=== PATIENT | female | born 1975 | race Caucasian/White ===

== ENCOUNTER 2024-02-26 08:10 | Outpatient (OUT) | payer BC, SELFPAY ==
--- NOTE | 2024-02-26 | MM_ITS ---
Patient Name: VIRGILIO VALLES MR#: [id number] : 1975 Exam Date: 02/26/2024 Ordering Doctor: DR Shmuel Berkowitz . RADIOLOGY REPORT PROCEDURE: MM TOMOSYNTHESIS SCREENING BI COMPARISON: MG MAMM SCREEN 3D NATASHA CAD, 09/05/2020. MG MAMM SCREEN 3D NATASHA CAD, 06/09/2022. INDICATIONS: SCREENING FOR MALIGNANT NEOPLASM OF BREASTS Calculator Name NCI Breast Cancer Risk Assessment Tool 5 Year Breast Cancer Risk 2.00% Lifetime Breast Cancer Risk 17.90% Personal Breast Cancer No Personal Ovarian Cancer No Treatments None Family Cancers Mother with breast cancer at age 72. LOCATION: [facility] BREAST COMPOSITION: The breasts are heterogeneously dense,which may obscure small masses. FINDINGS: DIAGNOSTIC CATEGORY 1--NEGATIVE. NO CHANGE FROM COMPARISON ASSESSMENT. Scattered benign-appearing calcifications are present. Scattered benign-appearing lymph nodes are present. RIGHT BREAST: No significant suspicious finding. LEFT BREAST: No significant suspicious finding. RECOMMENDATIONS: ROUTINE MAMMOGRAM AND CLINICAL EVALUATION IN 12 MONTHS. PLEASE NOTE: A NORMAL MAMMOGRAM DOES NOT EXCLUDE THE POSSIBILITY OF BREAST CANCER. A CLINICALLY SUSPICIOUS PALPABLE LUMP SHOULD BE BIOPSIED. Dictated by: Saman Corral MD on 02/26/2024 at 11:59 Approved by: Saman Corral MD on 02/26/2024 at 12:24
[2024-02-26 08:38] LABS: Basophils Absolute Auto 0.1 10^3/uL (0.0-0.1); Basophils Percent Auto 1.3 % (0.2-2.0); Eosinophils Absolute Auto 0.2 10^3/uL (0.0-0.7); Eosinophils Percent Auto 3.3 % (0.9-7.0); Hematocrit 42.4 % (36.0-48.0); Hemoglobin 14.1 g/dL (12.0-16.0); Immature Granulocytes Abs Auto 0.02 10^3/uL (0.00-0.03); Immature Granulocytes Pct Auto 0.3 % (0.0-0.5); Lymphocytes Absolute Auto 2.2 10^3/uL (1.2-3.8); Lymphocytes Percent Auto 31.5 % (20.5-60.0); Mean Corpuscular HGB Conc 33.3 g/dL (29.9-35.2); Mean Corpuscular Hemoglobin 30.7 pg (26.7-34.0); Mean Corpuscular Volume 92.4 fL (81.0-99.0); Mean Platelet Volume 10.9 fL (9.5-13.5); Monocytes Absolute Auto 0.6 10^3/uL (0.3-0.8); Monocytes Percent Auto 8.3 % (1.7-12.0); Neutrophils Absolute Auto 3.9 10^3/uL (1.4-6.5); Neutrophils Percent Auto 55.3 % (43.0-75.0); Platelet Count 239 10^3/uL (150-450); Red Blood Count 4.59 10^6/uL (4.20-5.40); Red Cell Distribution Width 13.1 % (11.0-15.0)
[2024-02-26 09:35] LABS: Free T4 0.95 ng/dL (0.76-1.46)
[2024-02-26 09:40] LABS: Alanine Aminotransferase 30 U/L (14-59); Albumin Globulin Ratio 1.1; Albumin Level 3.6 g/dL (3.4-5.0); Alkaline Phosphatase 97 U/L (46-116); Anion Gap 13.7; Aspartate Amino Transferase 19 U/L (15-37); BUN Creatinine Ratio 23.1; Bilirubin Total 0.4 mg/dL (0.2-1.0); Calcium 8.8 mg/dL (8.5-10.1); Carbon Dioxide 25.1 mmol/L (21.0-32.0); Chloride 107 mmol/L (98-107); Chol HDL Ratio 2.8; Cholesterol 210 mg/dL (<=200); Estimated GFR (African America >60 (>=60); Estimated GFR (Non-African Ame >60 (>=60); Globulin 3.2 g/dL; Glucose 102 mg/dL (74-106); HDL Cholesterol 74 mg/dL (40-60); Potassium 3.8 mmol/L (3.5-5.1); Sodium 142 mmol/L (136-145); Thyroid Stimulating Hormone 1.533 uIU/mL (0.358-3.740); Total Protein 6.8 g/dL (6.4-8.2); Triglycerides 55 mg/dL (<=150)
== END 2024-02-26 08:11 | disposition home or self-care (01) ==
LOC: MAMMO 08:14
PROVIDERS: PCP Family Medicine; Visit Provider Family Medicine
DX: Z00.00 Encounter for general adult medical examination without abnormal findings (principal); Z12.31 Encounter for screening mammogram for malignant neoplasm of breast; R53.83 Other fatigue; Z12.11 Encounter for screening for malignant neoplasm of colon; Z80.3 Family history of malignant neoplasm of breast
CPT/HCPCS: 36415; 77063; 77067; 80053; 80061; 84439; 84443; 85025

== ENCOUNTER 2025-04-21 07:37 | Outpatient (OUT) | payer BC, SELFPAY ==
--- OUTSIDE RECORDS SUMMARY | 2024-07-01 03:30 | XMS_ITS ---
Author Organization [facility] [place] Address [address] [place] [address] Care Team Providers Care [employer] Production Team Member Name Role Phone Raghu Berkowitz Primary Care Provider [phone] REASON FOR VISIT DIET Encounters Encounter Location Date Provider Diagnosis [address] [address] 07/01/2024 Raghu Berkowitz Plan Of Treatment Next Appt Details Provider Name:Raghu Berkowitz, 10:00:00 AM, [address] [place], [address], Progress Notes * Veronica BAEZ ADOB:[birth year] (49 yo F)Acc No.[id number]:07/01/2024 UNLOCKED PROGRESS NOTE Progress Note Patient: Evgeny SOLER Veronica Tiffanie :?Shmuel Berkowitz ([facility]), MDDOB:1975???Age: 48 Y???Sex:FemaleDate:07/01/2024Phone:[phone]:[address] [place] [id number] Subjective: * Chief Complaints: * 1 . DIET. * Medical History: Objective: * Vitals: Assessment: Plan: * Treatment: * * Electronic signature of Raghu Berkowitz MD, [phone] on 04/21/2025 at 07:41 AM EST Sign off status: PendingVisit Status:?CANC (Cancelled) * Provider: Dominick Berkowitz ([facility])MD Date: 0 07/01/2024 Generated for Printing/Faxing/eTransmitting on:?04/21/2025 07:41 AM EST
--- OUTSIDE RECORDS SUMMARY | 2025-04-07 10:38 | XMS_ITS ---
Author Organization [facility] in [place] Address [address] [place] [address] Care Team Providers Care Prescriptionist Name Role Phone Raghu Berkowitz Primary Care Provider REASON FOR VISIT Lab orders Encounters Encounter Location Date Provider Diagnosis [facility] [address] [place] [address] 04/07/2025 Raghu Berkowitz Arthralgia M25.5 0 Assessments Encounter Date Diagnosis (ICD Code) Assessment Notes Treatment Notes Treatment Clinical Notes Section Notes 04/07/2025 Arthralgia (ICD-10 - M25.50) Plan Of Treatment Pending Test Test Name Order Date RHEUMATOID PANEL 04/07/2025 Next Appt Details Provider Name:Raghu Berkowitz, 10:00:00 AM, [address] [place], [address], Progress Notes * Veronica BAEZ ADOB:[birth year] (49 yo F)Acc No.[id number]:04/07/2025 Patient:?Veronica BAEZ :1975???Age:49 Y???Sex:FemalePhone:[phone] Address:[address] [place] [address], [address] Subjective: * Chief Complaints: * L ab orders * Medical History: * Surgical History: * Hospitalization/Major Diagno stic Procedure: * Medications: Objective: * Vitals: * Physical Examination: ??? Assessment: * Assessment: 1.?Arthralgia - M25.50 (Primary)??? Plan: * Treatment: ?LAB: RHEUMATOID PANEL * Procedure Codes: * true * Date:?Generated for Printing/Faxing/eTransmitting on:?04/21/2025 07:41 AM EST
--- OUTSIDE RECORDS SUMMARY | 2025-04-21 07:40 | XMS_ITS | CCD ---
Author Organization [facility] Care Team Providers Care Kennel Worker Name Role Phone Mason Elias MD Primary Care Provider [phone] DR MASON ELIAS Admitting Unavailable CURT, DR CUEVAS Attending Unavailable DR MASON ELIAS Primary Care Unavailable DR MASON ELIAS Consulting Unavailable WEST, DR TRACY Mckeon Consulting Unavailable Mason Elias MD Primary Care Provider [phone] MASON ELIAS Primary Care Unavailable MASON ELIAS Primary Care Unavailable Medications Current Medications MedicationDrug Class(es)DatesSig (Normalized)Sig (Original)fluconazole 150 mg oral tablet (4 sources)Azole AntifungalStart: 37-76-6466smav 1 tablet by mouth once daily in the morningfluconazole (DIFLUCAN) 150 mg tablet Take 1 tablet by mouth once daily for 1 day. 1 tablet 1 09/03/2020 8:45 AM EDT 09/03/2020 ActiveComment on above:Take 1 tablet by mouth once daily.Take 1 tablet by mouth once daily for 1 day. Problems Problem ClassificationProblemDateDocumented DateEpisodic/ChronicOther screening for suspected conditions (not mental disorders or infectious disease) (4 sources)Encounter for screening mammogram for malignant neoplasm of breast; Translations: [ENC SCR MAMMO MALIG NEOPLASM BREAST]Onset: 78-30-2899Llkraoko Residual codes; unclassified (1 source)Family history of malignant neoplasm of breast; Translations: [FAMILY HX MALIG NEOPLASM OF BREAST]Onset: 55-38-6979Fbpaeoty Results Test NameValueInterpretationReference RangeFacilityXR KNEE 3V AP/LAT/MERCHANT RT on 78-58-1952XR KNEE 3V AP/LAT/MERCHANT RT* * *Final Report* * * DATE OF EXAM: Nov 30 2024 1:41PM NRX 5209 - XR KNEE 3V AP/LAT/MERCHANT RT / PROCEDURE REASON: knee internal derangement; unspecified laterality * * * * Physician Interpretation * * * * RESULT: Right knee radiographs HISTORY: Knee pain with movement TECHNIQUE: 3 views of the right knee COMPARISON: None available FINDINGS: No acute fracture, erosions or avascular necrosis. Moderate medial compartment and patellofemoral joint space narrowing with osteophytes. No joint effusion. Soft tissues are unremarkable. IMPRESSION: 1. Mild to moderate right knee osteoarthritis Transcribe Date/Time: Dec 01 2024 1:37P Dictated by: ERIK BAPTISTE MD This examination was interpreted and the report reviewed and electronically signed by: ERIK BAPTISTE MD on Dec 01 2024 1:38PM EST Thank you for allowing us to participate in the care of your patient. Should there be any questions regarding this interpretation, please call [phone]. If you are unable to reach us at the number above, please feel free to contact [facility] eRadiology at [phone]. [id number] Health System East Campus MAMM SCREEN 3D NATASHA CAD on 68-05-6459AK MAMM SCREEN 3D NATASHA CADPatient: VERONICA VALLES Exam Date: 06/09/2022 : 1975 Gender:F Ordering : DR MASON ELIAS . Admission #: [id number] Family : Order #: [id number] CLICK HERE TO VIEW EXAM RADIOLOGY REPORT PROCEDURE: MAMMOGRAM SCREENING 3D BILATERAL CAD COMPARISON: MG MAMM SCREEN NATASHA W CAD, 05/18/2018. MG MAMM SCREEN 3D NATASHA CAD, 09/05/2020. INDICATIONS: Screening mammography Calculator Name NCI Breast Cancer Risk Assessment Tool 5 Year Breast Cancer Risk 1.90% Lifetime Breast Cancer Risk 18.40% Personal Breast Cancer No Personal Ovarian Cancer No Treatments None Family Cancers Mother with breast cancer at age 72. LOCATION: [facility] BREAST COMPOSITION: Heterogeneously dense,which may obscure small masses. FINDINGS: DIAGNOSTIC CATEGORY 2--BENIGN FINDING. NO CHANGE FROM COMPARISON. Scattered benign-appearing nodules are present. Scattered benign-appearing calcifications are present. Scattered benign-appearing lymph nodes are present. RIGHT BREAST: No significant suspicious finding. LEFT BREAST: No significant suspicious finding. RECOMMENDATIONS: ROUTINE MAMMOGRAM AND CLINICAL EVALUATION IN 12 MONTHS. PLEASE NOTE: A NORMAL MAMMOGRAM DOES NOT EXCLUDE THE POSSIBILITY OF BREAST CANCER. A CLINICALLY SUSPICIOUS PALPABLE LUMP SHOULD BE BIOPSIED. Dictated by: Tracy Corral MD on 06/10/2022 at 10:07 Approved by: Tracy Corral MD on 06/10/2022 at 10:15NBrown [facility] W Auto Differential panel (Bld)on 36-44-1378Brhoqfvaf (Bld) [#/Vol]0.07 10*3/uL <0.11 k/uLAgenda ClinicBasophils/100 WBC (Bld)1.2 %[facility] Differential cell count method Nom (Bld)AutoCleveland ClinicEosinophils (Bld) [#/Vol]0.14 10*3/uL<0.46 k/uLCleOhio State East HospitalEosinophils/100 WBC (Bld)2.3 % [facility] HospitalErythrocyte distribution width (RBC) [Ratio]13.1 %11.5 - 15.0 % [facility] HospitalHematocrit (Bld) [Volume fraction]43.2 %36.0 - 46.0 %[facility] HospitalHemoglobin (Bld) [Mass/Vol]14.6 g/dL11.5 - 15.5 g/dLZanesville City Hospital Immature granulocytes (Bld) [#/Vol]<0.10 k/uLZanesville City HospitalImmature granulocytes/100 WBC (Bld)0.2 %[facility] HospitalLymphocytes (Bld) [#/Vol]2.06 10*3/uL1.00 - 4.00 k/uLZanesville City HospitalLymphocytes/100 WBC (Bld)34.0 %[facility] Hospital for RehabilitationH (RBC) [Entitic mass]30.8 pg26.0 - 34.0 pgCOhioHealth O'Bleness HospitalHC (RBC) [Mass/Vol]33.8 g/dL30.5 - 36.0 g/dLChildren's Hospital for RehabilitationV (RBC) [Entitic vol]91.1 fL80.0 - 100.0 fLCleveland ClinicMonocytes (Bld) [#/Vol]0.51 10*3/uL<0.87 k/uL Garcia ClinicMonocytes/100 WBC (Bld)8.4 %[facility] HospitalNeutrophils (Bld) [#/Vol]3.26 10*3/uL1.45 - 7.50 k/uLAgenda ClinicNeutrophils/100 WBC (Bld)53.9 %[facility] HospitalNucleated RBC (Bld) [#/Vol]<0.01 k/uLAgenda ClinicNucleated RBC/100 WBC (Bld) [Ratio]0.0 /100 WBCZanesville City HospitalPlatelet mean volume (Bld) [Entitic vol]10.8 fL9.0 - 12.7 fLCleveland ClinicPlatelets (Bld) [#/Vol]240 10*3/uL150 - 400 k/uLAgenda ClinicRBC (Bld) [#/Vol]4.74 10*6/uL3.90 - 5.20 m/uLAgenda ClinicWBC (Bld) [#/Vol]6.05 10*3/uL3.70 - 11.00 k/uLZanesville City HospitalComprehensive metabolic 2000 panelon 88-18-7933Bmjsfrl [Mass/Vol]4.3 g/dL 3.9 - 4.9 g/dLAgenda ClinicALP [Catalytic activity/Vol]97 U/L34 - 123 U/L Agenda ClinicALT [Catalytic activity/Vol]49 U/LHigh7 - 38 U/LCleveland [facility] Anion gap [Moles/Vol]8 mmol/LLow9 - 18 mmol/LCleveland ClinicAST [Catalytic activity/Vol]38 U/LHigh13 - 35 U/LCleveland ClinicBilirubin [Mass/Vol]0.3 mg/dL 0.2 - 1.3 mg/dLAgenda ClinicCalcium [Mass/Vol]9.0 mg/dL8.5 - 10.2 mg/dL Agenda ClinicChloride [Moles/Vol]106 mmol/LHigh97 - 105 mmol/LCleveland ClinicCO2 [Moles/Vol]22 mmol/L22 - 30 mmol/LCleveland ClinicCreatinine [Mass/Vol]0.77 mg/dL0.58 - 0.96 mg/dLZanesville City HospitalEstimated Glomerular Filtration Rate95 mL/min/1.73m>=60 mL/min/1.73mCleveland ClinicGlucose [Mass/Vol]97 mg/dL74 - 99 mg/dLZanesville City HospitalPotassium [Moles/Vol]4.2 mmol/L 3.7 - 5.1 mmol/LCleveland ClinicProtein [Mass/Vol]6.8 g/dL6.3 - 8.0 g/dL [facility] Hospitalodium [Moles/Vol]136 mmol/L136 - 144 mmol/LCleveland ClinicUrea nitrogen [Mass/Vol]17 mg/dL7 - 21 mg/dLZanesville City Hospital Encounters Encounter DateEncounter TypeCare ProviderFacilityStart: 12-12-2024 End: 33-88-5078tfyeespztoLGKJWED M HOYFacility:[facility] Hospitaltart: 48-51-3866imqzlbfrwxDIKYXPU M HOYFacility:[facility] Hospitaltart: 11-30-2024 End: 42-78-4891Uqpxunnxzz hospital visit by physicianGeneral Larisa De Souza Work Phone: RadiologyStart: 06-09-2022 End: 36-66-4042bxwsobfcmzTR DOUGLAS HOYFacility:U0Utjhi: 25-59-1828Rmzbrk Only Cornelia Acosta RNHematology/OncologyComment on above:Well adult exam (Primary Dx) Start: 46-37-8070Bfohsib encounter Ruthie Acosta RNHematology/Oncology Procedures DateProcedureProcedure DetailPerforming ClinicianStart: 39-89-7538Kxcxj 1996 panel - Serum or PlasmaGeneral Work Phone: Plan of Treatment DateCare ActivityDetailAuthorStart: 68-70-6137Tglho panelLipid Screening [facility] Hospitaltart: 10-01-7921RYCAVWCW SCREENDIABETES SCREENZanesville City Hospital Start: 85-89-7437Dtlvciko ScreeningDiabetes ScreeningFort Hamilton Hospitaltart: 02-25-6663Rfqpp-19 Vaccine ( season)Covid-19 Vaccine ( season)[facility] Hospitaltart: 34-08-4353Kpjagdepdjke Vaccine: 50+ (1 of 1 - PCV) Pneumococcal Vaccine: 50+ (1 of 1 - PCV)[facility] Hospitaltart: 11-24-2023 Shingrix Vaccine (1 of 2)Shingrix Vaccine (1 of 2)[facility] Hospitaltart: 69-60-3598KMYWT SCREENLIPID SCREENFort Hamilton Hospitaltart: 05-29-2022 End: 31-66-8882Qehvnygxza A1c in [facility] Work Phone: Comment on above:Expected: 05/29/2022, Expires: 07/29/2022Start: 05-29-2022 End: 54-96-4041Bspsguy [Units/volume] in Serum or [facility] Work Phone: Comment on above:Expected: 05/29/2022, Expires: 07/29/2022Start: 05-29-2022 End: 37-52-8906Qmhc and Iron binding capacity panel - [facility] or [facility] Work Phone: Comment on above:Expected: 05/29/2022, Expires: 07/29/2022Start: 05-29-2022 End: 98-12-5662Zqkoh 1996 panel - [facility] or [facility] Work Phone: Comment on above:Expected: 05/29/2022, Expires: 07/29/2022Start: 05-29-2022 End: 84-18-9714Q4 UPTAKETrinity Health [facility] Work Phone: Comment on above:Expected: 05/29/2022, Expires: 07/29/2022Start: 05-29-2022 End: 17-17-8020R7/FTI/C4ZTgdgrlazpMercy Health St[facility] Work Phone: Comment on above:Expected: 05/29/2022, Expires: 07/29/2022Start: 05-29-2022 End: 25-75-5208Iomttjoaaer [Units/volume] in Serum or [facility] Work Phone: Comment on above:Expected: 05/29/2022, Expires: 07/29/2022Start: 45-28-6323NYSXQCBGKF ASSESSMENTDEPRESSION ASSESSMENTFort Hamilton Hospitaltart: 85-56-7551TJRUHBCIP (FIT-DNA)COLOGUARD (FIT-DNA)[facility] Start: 51-18-7678UurolxtzljoDQTBZEDULRUUwbdjkizf ClinicStart: 2018 COLORECTAL CANCER SCREENINGCOLORECTAL CANCER SCREENINGFort Hamilton Hospitaltart: 77-79-5855CI COLONOGRAPHYCT COLONOGRAPHYFort Hamilton Hospitaltart: 67-87-1957FVQCX OCCULT BLOODFECAL OCCULT BLOODFort Hamilton Hospitaltart: 20-03-0882Afuzkfjmw for malignant neoplasm of colonFort Hamilton Hospitaltart: 80-89-5336YIJXBPMEMDVRQ SIGMOIDOSCOPYFort Hamilton Hospitaltart: 88-24-3428QbgfdbryrrmSXWCTWEALRawwpnzjn ClinicStart: 64-59-6724Ctbrmttje for malignant neoplasm of breastMammogram ScreeningFort Hamilton Hospitaltart: 94-50-2672GSQ TESTINGHPV TESTINGZanesville City Hospital Start: 26-72-9849KGW TESTINGPAP TESTINGFort Hamilton Hospitaltart: 1994 Screening for malignant neoplasm of cervixCervical Cancer ScreeningFort Hamilton Hospitaltart: 60-12-4822Angukbtvd B Vaccine (1 of 3 - 19+ 3-dose series)Hepatitis B Vaccine (1 of 3 - 19+ 3-dose series)[facility] Hospitaltart: 00-85-6255Lvsuo microalbumin profileFort Hamilton Hospitaltart: 10-46-5263Hgsrysz ScreeningAnxiety ScreeningFort Hamilton Hospitaltart: 45-66-5867Zkhbrnkplj ScreeningDepression ScreeningFort Hamilton Hospitaltart: 86-69-0662AFHBABJVE C SCREENINGHEPATITIS C SCREENINGFort Hamilton Hospitaltart: 25-65-8620Rgfusfils C screeningHepatitis C ScreeningFort Hamilton Hospitaltart: 97-46-9160ZOX SCREENINGHIV SCREENINGFort Hamilton Hospitaltart: 10-92-3636VRI screeningHIV ScreeningFort Hamilton Hospitaltart: 58-17-0460VLYWZ-19 VACCINE (#1)COVID-19 VACCINE (#1)[facility] Hospitaltart: 42-22-1227TNBZTUORY B (1 of 3 - 3-dose series)HEPATITIS B (1 of 3 - 3-dose series)[facility] HospitalHemoglobin.gastrointestinal.lower [Presence] in Stool by ImmunoassayFECAL OCCULT BLOOD TEST Lab Routine Well adult exam Ordered: 05/29/2022[facility] Work Phone: Comment on above:Ordered: 05/29/2022 End: 42-65-0266JQ Knee AP and Lateral and [facility] Comment on above:ONCE for 1 Occurrences starting 11/30/2024 until 11/30/2024 Immunizations Immunization DateImmunizationNotesCare NjsngutmTjgbahes61-97-8872kkxzfwejn, seasonal, injectable, preservative freeGeneral Work Phone: [facility] HospitalImrtdu33-12-9573kbkkyofuh virus vaccine, unspecified formulationGeneral Work Phone: [facility] HospitalRhldxn83-70-9923uztrqkwwn virus vaccine, unspecified formulationCornelia Acosta [facility] HospitalGfdpjz02-90-5714uspigcinf virus vaccine, unspecified formulationCornelia Acosta [facility]11-27-2018 influenza virus vaccine, unspecified formulationCornelia Acosta [facility] 82-18-1320xncylojue virus vaccine, unspecified formulationCornelia Acosta [facility] CampusHhdriu59-86-8920yuueritzs virus vaccine, unspecified formulationCornelia Acosta [facility] HospitalGhlzaa62-59-7766vpivpzwcn virus vaccine, unspecified formulationErica Dave [facility] Payers DatePayer CategoryPayerPolicy [id number] Cross Blue ShieldBLUE CARD PPO OOS [id number] BLUE CARD PPO OOS [id number] 2011-Present [phone] [address] [place] [address] [id number] Social History DateTypeDetailFacilityTobacco smoking status NHISTobacco smoking consumption unknownFort Hamilton Hospitaltart: 01-06-0551Sjk Assigned At BirthNot on file [facility] Hospitaltart: 94-95-9957Bstpsst of Social functionZanesville City Hospital Start: 81-62-8305Ccdy Deprivation IndexAvita Health System Ontario Hospital Score (1-100), lower number is lower riskNot on fileZanesville City Hospital History of Present illness Narrative 11-30-2024 Note Date & LqccXlgxEoshgwsc35-69-8383 History of Present illness Narrative* Myrna Garcia RT(R) - 11/30/2024 8:30 AM EDT Radiology Service Progress Note PATIENT NAME: Veronica Valles DATE OF SERVICE: November 30, 2024 TIME: 2:16 PM PATIENT IDENTITY VERIFICATION COMPLETED USING TWO (2) IDENTIFIERS: Name and Date of confirmedby patient verbally. FALL SCREENING: Has the patient had 2 falls in the last year or 1 fall with injury or currently using an Ambulatory Assistive Device (Walker, Cane, Wheelchair, Crutches, etc.)? No PATIENT GENDER DATA: Assigned female at . status: : No status:NO. PATIENT RELEVANT IMPLANT DATA REVIEWED: Not Applicable PATIENT PRESENTS WITH AN IMPLANTABLE OR ATTACHED GRADUATE NURSE: No RADIOLOGY DEPARTMENT: General X-ray: Exam(s) Completed: Lower Extremity X- Ray(s): Knee, AP / Lat / Merchant Right PERIPHERAL IV DATA: Not applicable SIGNED BY: RT Servando(R) November 30, 2024 2:16 PM documented in this encounterZanesville City Hospital Progress note 11-30-2024 Note Date & NqqlVctaKfnlnloi97-41-3158 NoteHNO ID: [id number] Author: MYRNA GARCIA RT(R) Service: ? Author Type: Technologist Type: Progress Notes Filed: 11/30/2024 14:16 Note Text: Radiology Service Progress Note PATIENT NAME: Veronica Valles DATE OF SERVICE: November 30, 2024 TIME: 2:16 PM PATIENT IDENTITY VERIFICATION COMPLETED USING TWO (2) IDENTIFIERS: Name and Date of confirmed by patient verbally. FALL SCREENING: Has the patient had 2 falls in the last year or 1 fall with injury or currently using an Ambulatory Assistive Device (Walker, Cane, Wheelchair, Crutches, etc.)? No PATIENT GENDER DATA: Assigned female at . status: : No status: NO. PATIENT RELEVANT IMPLANT DATA REVIEWED: Not Applicable PATIENT PRESENTS WITH AN IMPLANTABLE OR ATTACHED GRADUATE NURSE: No RADIOLOGY DEPARTMENT: General X-ray: Exam(s) Completed: Lower Extremity X-Ray(s): Knee, AP / Lat / Merchant Right PERIPHERAL IV DATA: Not applicable SIGNED BY: RT Servando(R) November 30, 2024 2:16 [facility] Evaluation note Note Date & TypeNoteFacilityEvaluation note* Diagnosis Well adult exam- Primary Routine general medical examination at a health care facility documented in this encounter [facility] Summary Purpose Family History No Family History Records FoundNo Family History Records Found Advance Directives No Advanced Directives Records FoundNo Advanced Directives Records Found Additional Source Comments Source Comments (unrecognize d section and content) In the event this informatio n is protected by the Federal Confidentiality of Alcohol and Drug Abuse Patient Records regulations: The Federal rules restrict any use of the information to criminally investigate or prosecute any alcohol or drug abuse patient.[facility] HospitalIn the event this information is protected by the Federal Confidentiality of Alcohol and Drug Abuse Patient Records regulations: The Federal rules restrict any use of the information to criminally investigate or prosecute any alcohol or drug abuse patient.[facility] Care Teams (unrecognized sec tion and content) Team MemberRelationshipSpecialtyStart DateEnd Date Mason Elias MD PCP - [facility] Medicine08/11/11Team MemberRelationshipSpecialtyStart DateEnd Date Mason Elias MD PCP - [facility]Fanew [facility]08/11/11 INFORMATION SOURCE (unrecogn ized section and content) DATE CREATED AUTHOR 06/13/2022 [facility] DATE CREATED AUTHOR AUTHOR'S ORGANIZ ATION 12/13/2024 [facility] Reason for Visit (unrecogniz ed section and content) ReasonCommentsRadio Gen RMP FOR RECORDS PERTAINING TO PATIENTS WHO ARE OR HAVE BEEN ENROLLED IN A CHEMICAL DEPENDENCY/SUBSTANCEABUSE PROGRAM, SOME INFORMATION MAY BE OMITTED. This clinical summary was aggregated from multiple sources. Caution should be exercised in using it in the provision of clinical care. This summary normalizes information from multiple sources, and as a consequence, information in this document may materially change the coding, format and clinical context of patient data. In addition, data may be omitted in some cases. CLINICAL DECISIONS SHOULD BE BASED ON THE PRIMARY CLINICAL RECORDS. [employer] [facility]. provides no warranty or guarantee of the accuracy or completeness of information in this document.
--- OUTSIDE RECORDS SUMMARY | 2025-04-21 07:41 | XMS_ITS | Clinical Summary ---
Author Organization [facility] Address [address] [place], [place] [address] Care Team Providers Care Beauty Sales Consultant Name Role Phone Shmuel Berkowitz MD Primary Care Provider [phone] Allergies No known active allergies Medications MedicationSigDispense QuantityRefillsLast FilledStart DateEnd DateStatus fluconazole (DIFLUCAN) 150 mg tablet Take 1 tablet by mouth once daily. 1 tablet 11:48 AM EST07/17/2020ctive fluconazole (DIFLUCAN) 150 mg tablet Take 1 tablet by mouth once daily for 1 day. 1 tablet 8:45 AM EDT09/03/2020ctive Active Problems No known active problems Immunizations ImmunizationAdministration DatesNext Dueinfluenza (IIV3) vaccine, trivalent, PF (AFLURIA, FLUARIX, FLULAVAL, FLUVIRIN, FLUZONE)04/11/2025,04/11/2024influenza vaccine, unspecified bndvanrqfge87/30/2023,04/14/2022,04/10/2021,05/11/2018, 04/30/2017,05/02/2016,04/24/2015 Social History Tobacco UseTypesPacks/DayYears UsedDateSmoking Tobacco: Never AssessedArea Deprivation IndexAnswerDate RecordedNational Score (1-100), lower number is lower riskNot on file05/19/2020State Score (1-10), lower number is lower riskNot on file05/19/2020Data from: https://www.neighborhoodatlas.medicine.[facility].edu/. Last address used for calculationNot on file05/19/2020CommentsUnknownSex and Gender InformationValueDate RecordedSex Assigned at BirthNot on fileLegal ZkyHnacck55/02/2012 9:07 AM ESTGender IdentityNot on fileSexual OrientationNot on file Plan of Treatment Health MaintenanceDue DateLast DoneCommentsAnxiety Cuixdastv32/11/1992Depression Lawiaihel31/11/1992HIV Fhaxadcgb07/11/1992Hepatitis C Msksiegbj27/11/1992 DTaP,Tdap,Td Vaccine (1 - Tdap)1992Hepatitis B Vaccine (1 of 3 - 19+ 3- dose series)1992Cervical Cancer Erqmudkei89/11/1995Mammogram Screening 2013CT Hhzxnlieimib10/11/2019Cologuard (FIT-DNA)2018Colonoscopy 2018Colorectal Cancer Issxlmttd38/11/2019Fecal Occult Blood2018 Iecdztgxwayws29/11/2019Pneumococcal Vaccine: 50+ (1 of 1 - PCV)11/24/2023 Shingrix Vaccine (1 of 2)4Covid-19 Vaccine (1 - season) 2025Diabetes Bgftjqfjm93/15/00381107/30/2021, 05/29/2022, 04/05/2018, Additional history existsLipid Moekarpuz53/15/168393/, 04/05/2018, 10/17/2015Influenza ZewxgljMdzjzuemd74/28/2025, 04/11/2024, 04/13/2023, Additional history exists Procedures Procedure NamePriorityDate/TimeAssociated DiagnosisCommentsCOMPREHENSIVE METABOLIC VAAXBNdwjcdm14/15/2022 10:19 AM EST Well adult exam LIPID PANEL, DDEUYJJGkrexxl74/15/2022 10:19 AM EST Well adult exam from Last 3 Months or Most Recently Relevant to Health Maintenance Results * (ABNORMAL) LIPID PANEL BASIC (05/29/2022 10:19 AM EST)ComponentValueRef Range Test MethodAnalysis TimePerformed AtPathologist SignatureCholesterol, Hlmoi341 (H)<200 mg/dL05/30/2022 5:43 AM [facility]: <200 mg/dL, Desirable 200-239 mg/dL, Borderline high >239 mg/dL, High Aqhhxibihuwj12<150 mg/dL05/30/2022 5:43 AM [facility] Comment: <150 mg/dL, Normal 150-199 mg/dL, Borderline high 200-499 mg/dL, High >499 mg/dL, Very high HDL Cjnnfzyclbj08>39 mg/dL05/30/2022 5:43 AM [facility] Comment: 40-59 mg/dL, Acceptable >59 mg/dL, High: Negative risk factor for coronary heart disease <40 mg/dL, Low: Positive risk factor for coronary heart disease Non HDL Thghnvokbyo498(H)<130 mg/dL05/30/2022 5:43 AM [facility] LABComment: <130 mg/dL, Optimal 130-159 mg/dL, Near optimal/above optimal 160-189 mg/dL, Borderline high 190-219 mg/dL, High >219 mg/dL, Very high Secondary prevention optimal non HDL Cholesterol levels are recommended to be <100 mg/dL Fasting Rwws15dbr57/16/2022 5:43 AM [facility] LABVLDL Mxmldnfkkzq13<30 mg/dL05/30/2022 5:43 AM [facility] TC:HDL Ratio3.01<5.10107/31/2021 5:43 AM [facility] LABLDL Cholesterol, Zwlwzyhxuq618(H)<100 mg/dL05/30/2022 5:43 AM [facility] LABComment: <100 mg/dL, Optimal 100-129 mg/dL, Near optimal/above optimal 130-159 mg/dL, Borderline high 160-189 mg/dL, High >189 mg/dL, Very high Secondary prevention optimal LDL Cholesterol levels are recommended to be < 70 mg/dL LDL:HDL Ratio1.80<2.5405/30/2022 5:43 AM [facility] Comment: Reference: 1. National Cholesterol Education Program ATP III Guideline At-A-Glance Quick Desk Reference: National Heart, Lung, and Blood [place]. National Institutes of Health. 2001: NIH Publication No. 01-3305. 2. An International Atherosclerosis Society position paper: global recommendations for the management of dyslipidemia: executive summary, Atherosclerosis. 2014: 232(2):410-413. Specimen (Source)Anatomical Location / LateralityCollection Method / Volume Collection TimeReceived TimeBloodBLOOD SPECIMEN / UnknownVenipuncture / Unknown 05/29/2022 10:19 AM EST05/29/2022 10:19 AM EST Narrative Authorizing ProviderResult TypeResult StatusBrian Sherif Lancaster MDLABORATORY Final ResultPerforming OrganizationAddressCity/State/ZIP CodePhone Number [facility] [address] [facility] [address] [place] [address], [facility] [address] [place] [address] * (ABNORMAL) COMP METABOLIC PANEL (05/29/2022 10:19 AM EST)ComponentValueRef RangeTest MethodAnalysis TimePerformed AtPathologist SignatureProtein, Total 6.86.3 - 8.0 g/dL05/29/2022 10:43 AM [facility] Albumin4.33.9 - 4.9 g/dL05/29/2022 10:43 AM [facility] LABCalcium, Total9.08.5 - 10.2 mg/dL05/29/2022 10:43 AM [facility] LABBilirubin, Total0.30.2 - 1.3 mg/dL05/29/2022 10:43 AM [facility] LABAlkaline Sjfulpiibrl2826 - 123 U/L 05/29/2022 10:43 AM [facility] TAAXHZ04(H)13 - 35 U/L107/30/2021 10:43 AM [facility] GREGFN20(H)7 - 38 U/L107/30/2021 10:43 AM [facility] UNFUsdocjg1015 - 99 mg/dL05/29/2022 10:43 AM [facility] LABComment: The British Diabetes Association (ADA) provides guidance for cutoff values for fasting glucose andrandom glucose. The ADA defines fasting as no caloric intake for at least 8 hours. Fasting plasma glucose results between 100 to 125 mg/dL indicate increased risk for diabetes (prediabetes). Fasting plasma glucose results greater than or equal to 126 mg/dL meet the criteria for diagnosis of diabetes. In the absence of unequivocal hyperglycemia, results should be confirmed by repeat testing. In a patient with classic symptoms of hyperglycemia or hyperglycemic crisis, random plasma glucose results greater than or equal to 200 mg/dL meet the criteria for diagnosis of diabetes. Reference: Standards of Medical Care in Diabetes 2016, British Diabetes Association. Diabetes Care. 2016.39(Suppl 1). LEX934 - 21 mg/dL05/29/2022 10:43 AM [facility] Creatinine0.770.58 - 0.96 mg/dL05/29/2022 10:43 AM [facility] PHOGrbsjp099918 - 144 mmol/L107/30/2021 10:43 AM [facility] LABPotassium4.23.7 - 5.1 mmol/L107/30/2021 10:43 AM [facility] SSHSyxvsnmm177(H)97 - 105 mmol/L107/30/2021 10:43 AM [facility] TCUAT91981 - 30 mmol/L107/30/2021 10:43 AM [facility] LABAnion Gap8(L)9 - 18 mmol/L107/30/2021 10:43 AM [facility] LABEstimated Glomerular Filtration Rate 95>=60 mL/min/1.73m 05/29/2022 10:43 AM [facility] LABComment:Estimated Glomerular Filtration Rate (eGFR) is calculated using the 2020 CKD-EPI creatinine equation. This equation utilizes serum creatinine, sex, and age as parameters. The creatinine assay has traceable calibration to isotope dilution- mass spectrometry. Refer to KDIGO guidelines for clinical interpretation. In patients with unstable renal function, e.g. those with acute kidney injury, the eGFRmay not accurately reflect actual GFR.Specimen (Source)Anatomical Location / LateralityCollection Method / VolumeCollection TimeReceived TimeBloodBLOOD SPECIMEN / UnknownVenipuncture / Ypckfua4805/29/2022 10:19 AM EST05/29/2022 10:19 AM EST Narrative Authorizing ProviderResult TypeResult StatusAquiles Lancaster MDLABORATORY Final ResultPerforming OrganizationAddressCity/State/ZIP CodePhone Number [facility] [address] [place] [address] from Last 3 Months or Most Recently Relevant to Health Maintenance Insurance Care Teams Team MemberRelationshipSpecialtyStart DateEnd Date Shmuel Berkowitz MD PCP - GeneralFamily Medicine08/11/11
--- OUTSIDE RECORDS SUMMARY | 2025-04-21 07:41 | XMS_ITS | Clinical Summary ---
Author Organization [facility] Address [address] [place] [address] Care Team Providers Care Ferryboat Operator Name Role Phone Unavailable Primary Care Provider Unavailabl e Social History Tobacco UseTypesPacks/DayYears UsedDateSmoking Tobacco: Never Assessed CommentsUnknownSex and Gender InformationValueDate RecordedSex Assigned at Not on fileLegal OohStivho90/15/2023 8:22 PM EDTGender IdentityNot on fileSexual OrientationNot on file Plan of Treatment Not on file Insurance
--- OUTSIDE RECORDS SUMMARY | 2025-04-21 07:42 | XMS_ITS | Patient Health Record ---
Author Organization [facility] [place] Address [address] [place] [address] Care Team Providers Care Scientific Informatics Project Leader Name Role Phone Raghu Berkowitz Primary Care Provider Allergies No Known Allergies Reason For Referral No Information Medications Medication SIG (Take, Route, Frequency, Duration) Notes Start Date End Date Status Adipex-P 37.5 MG 1 tablet before breakfast Orall y Once a day 5ActiveDiclofenac Sodium 75 MG1 tablet as needed Orally Twice a day; Duration: 30 days4ActiveZyrTEC 10 MG1 tablet Orally Once a dayActive Topiramate ER 50 MGTAKE 1 CAPSULE BY MOUTH EVERY DAY; Duration: 90 daysActive Social History Tobacco Use: Social History Observation Description Date Details (start date - stop date) Never Smoker NA - NA Alcohol Screen (Audit-C) Question Answer Notes Did you have a drink containing alcohol in the p ast year? Yes How often did you have 6 or more drinks on one occasion in the past year?Never (0 point)How many drinks did you have on a typical day when you were drinking in the past year?3 or 4 drinks (1 point)How often did you have a drink containing alcohol in the past year?Monthly (2 points)Knftjo3TgjmwnupngrcctGhnmubacDyzwopr Control (Standard) Question Answer Notes Tobacco use: Nonsmoker AUDIT-C (Standard) Question Answer Notes Did you have a drink containing alcohol in the p ast year? 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 ProblemAcute eczema (119130279)Acute eczema (L30.9)ActiveconfirmedProblem Derangement of knee (67111979)Knee internal derangement, unspecified laterality (M23.90)ActiveconfirmedProblemMixed anxiety and depressive disorder (291068874) Anxiety and depression (F41.8)Activeconfirmed Vital Signs Blood pressure diastolic 74 mm Hg 04/05/2025 Imwqup77 in04/05/2025lood pressure fasindlw190 mm Hg04/05/20251528Dzoqxl949 lbs 04/05/2025BMI40.93 kg/m204/05/2025 Encounters Encounter Location Date Provider Diagnosis [facility] [address] [place] [address] 05/06/2024 Raghu Hoy Endogenous obesity E66.8 [facility] [address] [place] [address] 11/28/2024 Raghu Hoy Internal derangement of right knee M23.91 [facility] [address] [place] [address] 12/12/2024 Raghu Hoy Derangement of knee, right M23.91 [facility] [address] [place] [address] 04/05/2025 Raghu Hoy Well adult Z00.00 ; Arthralgia M25.50 and Anxiety and depression F41.8 [facility] [address] [place] [address] 12/04/2024 Raghu Hoy [facility] [place] [address] [facility] [place] [address]/24/2025Doug HoyArthralgia M25.50 Assessments Encounter Date Diagnosis (ICD Code) Assessment Notes Treatment Notes Treatment Clinical Notes Section Notes 05/06/2024 Endogenous obesity (ICD-10 - E66 .8) 11/28/2024Internal derangement of right knee (ICD-10 - M23.91)12/12/2024 Derangement of knee, right (ICD-10 - M23.91)04/05/2025Well adult (ICD-10 - Z00.00)04/05/2025rthralgia (ICD-10 - M25.50)04/07/2025rthralgia (ICD-10 - M25.50)04/05/2025nxiety and depression (ICD-10 - F41.8)12/12/2024Otherr knee standard sgterpoid injection Plan Of Treatment Pending Test Test Name Order Date HEMOGLOBIN A1C (GLYCO) 04/05/2025 LIPID PANEL (CHOL/TRIG/HDL/LDL) 04/05/20 25 RHEUMATOID PANEL 04/07/2025 FECAL OCCULT BLOOD 09/17/2023 CMP - Comprehensive Metabolic Panel 08/14 CBC W/AUTO DIFF 09/02/2023 STOOL OCCULT BLOOD 04/05/2025 CBC AUTO DIFF 09/17/2023 LIPID PROFILE 09/02/2023 LIPID PROFILE 09/17/2023 PROF 14(COMP METB) 09/17/2023 STOOL CULTURE 09/02/2023 THYROID PROFILE WITH TSH 09/17/2023 XR KNEE RT 3V 11/28/2024 THYROID PANEL (T4/TSH/FREE T3) THYROID PANEL (T4/TSH/FREE T3) 4 MM screening mammo BI 04/05/2025 CMP (COMP MET MCBRIDE) w/eGFR CKD-EPI 2024 CBC WITH DIFF 04/05/2025 Next Appt Details Provider Name:Raghu Berkowitz, 10:00:00 AM, [address] [place], [address], Insurance Providers Payer Name Payer Address Payer Phone Subscriber Number Group Number Insured Name Patient Relationship to Insured Coverage Start Date Coverage End Date BCBS OUT OF STATE [address] [place] [address] [id number] Percy Baez Spouse - patient is the spouse of the insured 2022 Medications Administered Medication Instructions Date of Administration Dosage Notes Lidocaine HCl mLTriamcinolone 40 mg/ml0 mg Medical (General) History Medical History History ICD Code OBESITY ECZEMAANXIETY and DEPRESSIONSurgical History Surgery Date(Month/Year) tonsillectomy appendectomyhysterectomygallgladderHospitalization History Reason Date(Month/Year) denies
--- OUTSIDE RECORDS SUMMARY | 2025-04-21 07:42 | XMS_ITS | Clinical Summary ---
Author Organization [employer] [facility] Address [id number] [address] [place] [address] Care Team Providers Care Relay Motorman Name Role Phone Shmuel Berkowitz MD Primary Care Provider [phone] Allergies No known active allergies Medications MedicationSigDispense QuantityRefillsLast FilledStart DateEnd DateStatus cetirizine (ZyrTEC) 10 mg tablet Take 20 mg by mouth daily.Active Active Problems ProblemNoted DateDiagnosed DateTinnitus aurium, left10/26/2018Hearing loss 10/26/2018 Resolved Problems ProblemNoted DateDiagnosed DateResolved DateAllergic zkybcish89/14/2019 11/15/2018 Social History Tobacco UseTypesPacks/DayYears UsedDateSmoking Tobacco: NeverSmokeless Tobacco: NeverChildcareAnswerDate RbivknuhBracdnmnpCjuskew11/31/2019EmploymentAnswerDate OszaqoqoMotftebnkgYaafvld02/31/2019Purpose - LifeAnswerDate RecordedPurpose and direction in tcksThlqqrf38/11/2021CommentsUnknownSex and Gender InformationValueDate RecordedSex Assigned at BirthNot on fileLegal SexFemale 10/20/2018 9:56 AM EDTGender IdentityNot on fileSexual OrientationNot on file Last Filed Vital Signs Vital SignReadingTime TakenCommentsBlood Mfyndmik821/80010/26/2018 4:48 PM EDT Pulse--Temperature--Respiratory Rate--Oxygen Saturation--Inhaled Oxygen Concentration--Dflcqh788.5 kg (237 lb)10/26/2018 4:48 PM TLTUxsguo588.6 cm (5' 6 )10/26/2018 4:48 PM EDTBody Mass Index38.25010/26/2018 4:48 PM EDT Plan of Treatment Health MaintenanceDue DateLast DoneCommentsDepression Tngcaxezh04/11/1986Tobacco Yzhnzezys37/11/1986Adult BMI Majarrelf69/11/1992DTaP,Tdap and Td Vaccines (1 - Tdap)1992Pap Smear1994Zoster (Shingles) Vaccine (1 of 2)11/24/2023 Influenza Wvvcwfx67/01/43270007/11/2017, 04/30/2017, 05/02/2016, Additional history exists Medical Devices Not on file Insurance Care Teams Team MemberRelationshipSpecialtyStart DateEnd Date Shmuel Berkowitz MD PCP - GeneralFamily Medicine11/12/18
--- NOTE | 2025-04-21 07:53 | MM_ITS ---
Patient Name: VIRGILIO VALLES MR#: [id number] : 1975 Exam Date: 04/21/2025 Ordering Doctor: DR MASON ELIAS . RADIOLOGY REPORT PROCEDURE: MM TOMOSYNTHESIS SCREENING BI COMPARISON: MM TOMOSYNTHESIS SCREENING BI, 02/26/2024. MG MAMM SCREEN 3D NATASHA CAD, 06/09/2022. MG MAMM SCREEN 3D NATASHA CAD, 09/05/2020. MG MAMM NATASHA SCRN W CAD DIG, 07/31/2015. INDICATIONS: Screening Calculator Name NCI Breast Cancer Risk Assessment Tool 5 Year Breast Cancer Risk 2.10% Lifetime Breast Cancer Risk 17.60% Personal Breast Cancer No Personal Ovarian Cancer No Treatments None Family Cancers Mother with breast cancer at age 72. LOCATION: [facility] BREAST COMPOSITION: The breasts are heterogeneously dense, which may obscure small masses. FINDINGS: DIAGNOSTIC CATEGORY 1--NEGATIVE. RIGHT BREAST: No significant suspicious finding. LEFT BREAST: No significant suspicious finding. RECOMMENDATIONS: ROUTINE MAMMOGRAM AND CLINICAL EVALUATION IN 12 MONTHS. Dictated by: Denilson Cummins MD on 04/21/2025 at 10:22 Approved by: Denilson Cummins MD on 04/21/2025 at 11:09
[2025-04-21 08:23] LABS: Hematocrit 43.6 % (36.0-48.0); Hemoglobin 14.8 g/dL (12.0-16.0); Immature Granulocytes Abs Auto 0.01 10^3/uL (0.00-0.03); Immature Granulocytes Pct Auto 0.2 % (0.0-0.5); Lymphocytes Absolute Auto 1.6 10^3/uL (1.2-3.8); Mean Corpuscular HGB Conc 33.9 g/dL (29.9-35.2); Mean Corpuscular Hemoglobin 31.0 pg (26.7-34.0); Mean Corpuscular Volume 91.2 fL (81.0-99.0); Platelet Count 239 10^3/uL (150-450); Red Blood Count 4.78 10^6/uL (4.20-5.40); White Blood Count 5.9 10^3/uL (4.0-11.0)
[2025-04-21 08:48] LABS: Alanine Aminotransferase 33 U/L (14-59); Albumin Globulin Ratio 1.2; Albumin Level 3.8 g/dL (3.4-5.0); Alkaline Phosphatase 100 U/L (46-116); Anion Gap 12.6; Aspartate Amino Transferase 21 U/L (15-37); Blood Urea Nitrogen 22.0 mg/dL (7.0-18.0); Calcium 9.1 mg/dL (8.5-10.1); Carbon Dioxide 25.3 mmol/L (21.0-32.0); Chloride 108 mmol/L (98-107); Cholesterol 217 mg/dL (<=200); Estimated GFR (African America >60 (>=60 mL/min/1.73m^2); Estimated GFR (Non-African Ame >60 (>=60 mL/min/1.73m^2); Free T3 2.03 pg/mL (2.18-3.98); Globulin 3.3 g/dL; Glucose 96 mg/dL (74-106); HDL Cholesterol 59 mg/dL (40-60); Potassium 3.9 mmol/L (3.5-5.1); Sodium 142 mmol/L (136-145); Thyroid Stimulating Hormone 1.815 uIU/mL (0.358-3.740); Total Protein 7.1 g/dL (6.4-8.2); Triglycerides 62 mg/dL (<=150); Uric Acid 5.4 mg/dL (2.6-6.0); VLDL CHOLESTEROL 12.4 mg/dL
[2025-04-25 10:08] LABS: Antinuclear Antibodies, IFA Negative (.)
== END 2025-04-21 07:38 | disposition home or self-care (01) ==
LOC: MAMMO 07:37
PROVIDERS: PCP Family Medicine; Visit Provider Family Medicine
DX: Z00.00 Encounter for general adult medical examination without abnormal findings (principal); Z12.31 Encounter for screening mammogram for malignant neoplasm of breast; M25.50 Pain in unspecified joint; F41.8 Other specified anxiety disorders; Z80.3 Family history of malignant neoplasm of breast
CPT/HCPCS: 36415; 77063; 77067; 80053; 80061; 83036; 84436; 84443; 84481; 84550; 85025; 86038; 86060; 86140; 86431